=== PATIENT | male | born 1970 | race Caucasian/White ===

== ENCOUNTER 2017-12-02 12:06 | Outpatient (CLI) | payer OTHER ==
--- NOTE | 2017-12-02 13:27 | RAD ---
RIGHT KNEE TWO VIEWS: History: 46-year-old male with history of disability evaluation and right knee pain. FINDINGS: AP and lateral examination of the right knee demonstrates minimal superficial prepatellar and infrapa tellar swelling. No evidence for acute fracture or dislocation. IMPRESSION: Minimal anterior soft tissue swelling. No fracture or dislocation. POS: [facility]
--- NOTE | 2017-12-02 13:33 | RAD ---
THREE VIEWS THORACIC SPINE: Date: 12-02-17 History: Disability evaluation. Back pain. Comparison: None available. FINDINGS: There is severe right convex rotoscoliosis of the thoracolumbar spine. This limits evaluation of the thoracic spine on lateral projection. There is suggestion of slight right lateral subluxation of L2 o n L3 related to the scoliotic curvature. No obvious fracture is visualized based on this exam. No ot her findings. IMPRESSION: Right convex rotoscoliosis thoracolumbar spine which limits evaluation of spine on lateral projection . No obvious fracture is visualized. POS: [facility]
== END 2017-12-02 12:07 | disposition home or self-care (01) ==
LOC: NAV RAD 12:06
PROVIDERS: ATTEND Family Medicine
DX: M41.9 Scoliosis, unspecified (principal); M54.9 Dorsalgia, unspecified; M25.561 Pain in right knee; M79.9 Soft tissue disorder, unspecified
CPT/HCPCS: 72072

== ENCOUNTER 2023-02-11 19:23 | Emergency (ER) | payer BC, SELFPAY ==
[2023-02-11] MEDS ORDERED: Ketorolac Tromethamine 60 MG/2 ML VIAL ONE (20:27)
== END 2023-02-11 20:47 | disposition home or self-care (01) ==
LOC: NAV ERS 19:23
DX: M66.9 Spontaneous rupture of unspecified tendon (principal); F17.210 Nicotine dependence, cigarettes, uncomplicated; I10 Essential (primary) hypertension
CPT/HCPCS: 96372; 99283; J1885

== ENCOUNTER 2023-03-24 18:15 | Emergency (ER) | payer BC ==
[2023-03-24] MEDS ORDERED: Boostrix 0.5 ML (Tdap) VIAL (>/=7 yrs of age) ONE (18:26)
[2023-03-24] MEDS ORDERED: Lidocaine 1% w/Epinephrine 1:100K 20 ML VIAL ONE (18:42)
[2023-03-24] MEDS ORDERED: Bacitracin 1 PK ONE (18:42)
== END 2023-03-24 19:10 | disposition home or self-care (01) ==
LOC: NAV ERS 18:15
DX: S71.111A Laceration without foreign body, right thigh, initial encounter (principal); I10 Essential (primary) hypertension; F17.210 Nicotine dependence, cigarettes, uncomplicated; Z23 Encounter for immunization; W22.8XXA Striking against or struck by other objects, initial encounter
CPT/HCPCS: 12002; 90471; 90715; 99282

== ENCOUNTER 2023-11-22 08:39 | Emergency (ER) | payer BC, OTHER, SELFPAY ==
[2023-11-22 09:13] LABS: Bilirubin Negative (Negative); Blood, Urine Trace (Negative); Clarity Clear (Clear); Glucose, Urine (Dipstick) Negative (Negative); Ketone, Urine Negative (Negative); Leukocyte Negative (Negative); Nitrite Negative (Negative); Protein, Urine (Dipstick) Negative (Neg-Trace); Urobilinogen 0.2 mg/dL (Less than 2)
[2023-11-22 09:16] LABS: CAUTI Indications for Culture Pelvic or flank pain; RBC/HPF None Seen HPF (0-3); Specific Gravity, Urine 1.006 (1.002-1.036); Squamous Epithelial 0-3 HPF (0-3); Urine Culture Reflex No No; WBC/HPF 0-3 HPF (0-3)
== END 2023-11-22 10:12 | disposition home or self-care (01) ==
LOC: NAV ERS 08:39
DX: M54.9 Dorsalgia, unspecified (principal); G89.29 Other chronic pain; M41.9 Scoliosis, unspecified; I10 Essential (primary) hypertension; F17.210 Nicotine dependence, cigarettes, uncomplicated
CPT/HCPCS: 74176; 81001

== ENCOUNTER 2024-01-12 10:51 | Emergency (ER) | payer OTHER | END 2024-01-12 12:29 | disposition home or self-care (01) | LOC: NAV ERS 10:51 | DX: H57.11 Ocular pain, right eye (principal); F17.210 Nicotine dependence, cigarettes, uncomplicated; I10 Essential (primary) hypertension; Z55.6 Problems related to health literacy | CPT/HCPCS: 99283 ==